=== PATIENT | male | born 1990 | race Caucasian/White ===

== ENCOUNTER 2017-04-14 18:13 | Emergency (ER) | payer SELFPAY ==
[~2017-04-14] VITALS: Ht 172.7 cm; Wt 64.9 kg
[2017-04-14 21:29] VITALS: BP 112/67
== END 2017-04-14 21:30 | disposition home or self-care (01) ==
LOC: ED 18:13
DX: S51.012A Laceration without foreign body of left elbow, initial encounter (principal); X58.XXXA Exposure to other specified factors, initial encounter; Y93.89 Activity, other specified; Y99.8 Other external cause status; Y92.89 Other specified places as the place of occurrence of the external cause
CPT/HCPCS: 90715; J0696